=== PATIENT | male | born 1925 | race Caucasian/White ===

== ENCOUNTER → 2017-01-26 | Outpatient (REF) | payer MEDICARE ==
[2017-01-26 19:26] LABS: MEAN CORPUSCULAR HEMOGLOBIN 32.2 pg (27.0-33.0); MEAN CORPUSCULAR VOLUME 94.6 fl (80.0-96.0); RED CELL DISTRIBUTION WIDTH 13.5 % (11.5-14.5); WHITE BLOOD COUNT 6.7 K/mm3 (4.0-10.0)
[2017-01-26 20:09] LABS: AMYLASE 108 U/L (25-115)
== END ==
LOC: M SFHCCLAY 09:25
PROVIDERS: ATTEND Family Medicine
DX: K29.00 Acute gastritis without bleeding (principal); R10.13 Epigastric pain
CPT/HCPCS: 82150; 83690; 85027; G0463

== ENCOUNTER → 2017-01-27 | Outpatient (REF) | payer MEDICARE | LOC: M SFHCCLAY 10:58 | PROVIDERS: ATTEND Family Medicine | DX: K29.00 Acute gastritis without bleeding (principal); R10.13 Epigastric pain ==